=== PATIENT | male | born 1940 | race Caucasian/White ===

== ENCOUNTER 2023-02-15 16:48 | Emergency (ER) | payer MEDICARE, OTHER, SELFPAY ==
[2023-02-15] VITALS (31 sets, daily range): BP systolic 134–207; BP diastolic 63–95; PULSE 68–118; RESP 16–25; TEMP 37.1; O2SAT 92–99; BMI 32.8
--- NOTE | 2023-02-15 17:12 | DI.RAD.S_ITS ---
PROCEDURE: XR CHEST 1V INDICATIONS: chest pain TECHNIQUE: One view of the chest was acquired. COMPARISON: [facility], , CHEST 2 VIEW, 07/30/2013, 9:37. FINDINGS: Surgical changes and devices: None. Lungs and pleura: Lungs are clear. No pleural effusions or pneumothorax. Mediastinum: Mediastinal contours appear normal. Heart size is normal. Bones and chest wall: No suspicious bony lesions. Overlying soft tissues appear unremarkable. IMPRESSION: Stable radiographic evaluation of the chest without acute cardiopulmonary abnormalities or focal airspace disease. Dictated by: Surjit Chopra M.D. on 02/15/2023 at 17:28 Approved by: Surjit Chopra M.D. on 02/15/2023 at 17:31
[2023-02-15 17:15] LABS: Add Manual Diff / Slide Review NO; Basophils Absolute Auto 0 /uL (0-100); Basophils Percent Auto 0.5 % (0-2); Eosinophils Absolute Auto 0 /uL (0-450); Eosinophils Percent Auto 0.4 % (2-4); Hematocrit 43.6 % (41-53); Hemoglobin 14.9 g/dL (13.5-17.5); Lymphocytes Absolute Auto 1100 /uL (1100-4500); Lymphocytes Percent Auto 12.5 % (25-40); Mean Corpuscular HGB Conc 34.2 % (30-36); Mean Corpuscular Hemoglobin 31.6 PG (26-34); Mean Corpuscular Volume 92.4 fL (80-100); Monocytes Absolute Auto 700 /uL (0-900); Neutrophils Absolute Auto 6800 /uL (1500-7000); Neutrophils Percent Auto 78.6 % (50-75); Platelet Count 202 X10^3/uL (150-400); Red Blood Cell Count 4.72 X10^6/uL (4.5-5.9); Red Cell Distribution Width 13.4 % (11.6-14.8); White Blood Cell Count 8.7 X10^3/uL (4.5-11.0)
[2023-02-15 17:21] LABS: INR 1.2 (0.9-1.3); Prothrombin Time 13.2 SECONDS (10.1-12.7)
[2023-02-15] MEDS: PANTOPRAZOLE 40 MG VIAL 80 MG IV (17:23)
[2023-02-15 17:24] LABS: PTT Partial Thromboplastin Tim 32 SECONDS (26-36)
[2023-02-15 17:26] LABS: Creatine Kinase 92 U/L (55-170); Lipase 69 U/L (23-300)
[2023-02-15 17:28] LABS: Alanine Aminotransferase 28 IU/L (<50); Albumin 4.4 g/dL (3.5-5.0); Albumin Globulin Ratio 1.5 (1.0-2.8); Alkaline Phosphatase 57 U/L (38-126); Aspartate Aminotransferase 33 IU/L (17-59); BUN Creatinine Ratio 13.2 (6-22); Bilirubin Total 0.7 mg/dL (0.2-1.3); Blood Urea Nitrogen 15 mg/dL (9-20); Calcium 9.7 mg/dL (8.4-10.2); Carbon Dioxide 26 mmol/L (22-32); Chloride 100 mmol/L (98-107); Estimated Glomerular Filt Rate > 60 mL/min (>60); Glucose 115 mg/dL (80-110); HEMOLYSIS < 15 (0-50); Potassium 3.9 mmol/L (3.4-5.1); Sodium 135 mmol/L (137-145); Total Protein 7.4 g/dL (6.3-8.2)
--- NOTE | 2023-02-15 17:31 | PC.NURSE ---
Pt reports 1 episode last week of coffee ground emesis, has had nausea all week since. today started with mild CP and SOB which has resolved. h/o afib and lives in afib and takes eliquis daily. Reports he works out multiple times a week and takes walks without pain or issue.
[2023-02-15 17:38] LABS: NT-proBNP (BNP-Adult 18+) 294 pg/mL (<450); Troponin I < 0.012 ng/mL (0.01-0.034)
--- NOTE | 2023-02-15 18:12 | ED_ITS ---
HPI - Chest Pain General Chief Complaint: Chest Pain Stated Complaint: chest pain, sob Time Seen by Provider: 02/15/23 17:01 Source: patient Mode of arrival: Ambulatory Limitations: no limitations History of Present Illness HPI narrative: 82-year-old male nonsmoker with history of hypertension, atrial fibrillation on Eliquis presents for evaluation of high heart rate and elevated blood pressure this afternoon with associated central chest pressure that lasted about 10 minutes and went away at about 3:00 p.m.. He has been asymptomatic ever since. He is not dizzy nor weak or lightheaded. He is currently having no chest pain or shortness of breath. He denies nausea, vomiting or diarrhea though did have an episode about a week ago of vomiting but no subsequent changes. He denies any numbness, tingling or weakness. He has no headache, blurred vision or trouble with speech. He states that about a week or 2 ago his primary care provider took him off of metoprolol. He denies any dark and tarry stools. He denies other medication or dietary change Related Data Home Medications Medication Instructions Recorded Confirmed amlodipine 5 mg-benazepril 10 mg 1 cap PO DAILY 02/15/23 02/15/23 capsule apixaban 5 mg tablet (Eliquis) 5 mg PO BID 02/15/23 02/15/23 aspirin 81 mg capsule 81 mg PO DAILY 02/15/23 02/15/23 hydrochlorothiazide 12.5 mg capsule 12.5 mg PO DAILY 02/15/23 02/15/23 metoprolol tartrate 25 mg tablet 25 mg PO DAILY 02/15/23 02/15/23 potassium chloride 10 mEq 10 meq PO DAILY 02/15/23 02/15/23 tablet,extended release rosuvastatin 40 mg tablet 40 mg PO DAILY 02/15/23 02/15/23 tamsulosin 0.4 mg capsule 0.4 mg PO DAILY 02/15/23 02/15/23 Allergies Allergy/AdvReac Type Severity Reaction Status Date / Time No Known Drug Allergies Allergy Verified 02/15/23 17:00 Review of Systems Review of Systems Narrative: GENERAL: Denies chills, fatigue, malaise, fever, sweats. HEENT: Denies sinus pain, ear pain, sore throat, difficulty swallowing, dizziness. RESPIRATORY: Denies dyspnea, cough, wheezing, hemoptysis, sputum. CARDIOVASCULAR: See HPI GASTROINTESTINAL: Denies nausea, vomiting, abdominal pain, diarrhea, constipation, melena. : Denies dysuria, frequency, incontinence, hematuria, urinary retention. MUSCULOSKELETAL: denies weakness, joint pain, or bony pain SKIN: Denies rash, skin lesions, or other NEUROLOGIC: Denies weakness, headache, numbness, change in speech, confusion, seizures, incoordination. PSYCHIATRIC: No concerning psychosocial issues. 12 point review of systems is negative except for those stated above Patient History Medical History High cholesterol Hypertension Social History Smoking Status: Never smoker Smoking Status: Never smoker alcohol intake frequency: 0-2 drinks per day Substance Use Type: does not use Exam Narrative Exam Narrative: GENERAL: [82] year old patient appears stated age. Well-developed patient, in mi ld distress. HEAD: Atraumatic. Normocephalic. EYES: Pupils equal round and reactive. Extraocular motions intact. No scleral icterus. No injection or drainage. ENT: Nose without bleeding, purulent drainage. Throat without erythema, tonsillar hypertrophy or exudate. Airway patent. NECK: Trachea midline. Non tender CARDIOVASCULAR: Regular rate and rhythm without murmurs, gallops, or rubs. RESPIRATORY: Clear to auscultation. Breath sounds equal bilaterally. No wheezes, rales, or rhonchi. GASTROINTESTINAL: Abdomen soft, non-tender, nondistended. EXTREMITIES: No edema or joint tenderness. BACK: Nontender without deformity or crepitance. No flank tenderness. NEURO: AOx3. SKIN: No rash or erythema of visible areas Initial Vital Signs Initial Vital Signs: Vital Signs Temperature 98.7 F 02/15/23 16:50 Pulse Rate 118 H 02/15/23 16:50 Respiratory Rate 24 02/15/23 16:50 Blood Pressure 207/95 H 02/15/23 16:50 Pulse Oximetry 99 02/15/23 16:50 Oxygen Delivery Method Room Air 02/15/23 16:50 Course Orders Ordered: ED Orders 02/15/23 17:00 Complete Blood Count AUTO DIFF Stat Comprehensive Metabolic Panel Stat Lactate (Lactic Acid) Stat Lipase Stat NT-proBNP (BNP-Adult 18+) Stat PTT Partial Thromboplastin Angelo Stat Prothrombin Time INR Stat Troponin & CK Cardiac Panel Stat Type and Screen Stat 02/15/23 17:12 XR chest 1V Stat 02/15/23 17:15 EKG-12 Lead Stat 02/15/23 20:00 Troponin & CK Cardiac Panel Stat Ondansetron HCl (Ondansetron 4 Mg/2 Ml Inj) 4 mg IV NOW PRN PRN Reason: Nausea And Vomiting Ondansetron HCl (Ondansetron 4 Mg Odt) 4 mg SL NOW PRN PRN Reason: Nausea And Vomiting Discontinued Medications Pantoprazole Sodium (Pantoprazole 40 Mg Vial) 80 mg IV NOW ONE Stop: 02/15/23 17:01 Last Admin: 02/15/23 17:23 Dose: 80 mg Documented By: CTS Vital Signs Vital signs: Vital Signs - 8 hr 02/15/23 16:50 02/15/23 16:53 02/15/23 17:00 Temperature 98.7 F Pulse Rate 118 H 96 H 95 H Respiratory Rate 24 25 H Blood Pressure 207/95 H Pulse Oximetry 99 96 97 Oxygen Delivery Method Room Air 02/15/23 17:02 02/15/23 17:02 02/15/23 17:10 Temperature Pulse Rate 93 H Respiratory Rate 24 Blood Pressure 174/81 H 165/80 H Pulse Oximetry 95 Oxygen Delivery Method 02/15/23 17:10 02/15/23 17:15 02/15/23 17:20 Temperature Pulse Rate 94 H 85 87 Respiratory Rate 21 20 23 Blood Pressure Pulse Oximetry 97 97 97 Oxygen Delivery Method Room Air 02/15/23 17:20 02/15/23 17:30 02/15/23 17:30 Temperature Pulse Rate 81 Respiratory Rate 22 Blood Pressure 170/79 H 164/77 H Pulse Oximetry 96 Oxygen Delivery Method Room Air 02/15/23 17:40 02/15/23 17:40 02/15/23 17:45 Temperature Pulse Rate 82 81 Respiratory Rate 22 22 Blood Pressure 169/77 H Pulse Oximetry 97 96 Oxygen Delivery Method 02/15/23 17:50 02/15/23 17:50 02/15/23 18:00 Temperature Pulse Rate 78 Respiratory Rate 20 Blood Pressure 134/70 146/73 H Pulse Oximetry 95 Oxygen Delivery Method 02/15/23 18:00 02/15/23 18:12 02/15/23 18:12 Temperature Pulse Rate 76 78 Respiratory Rate 22 23 Blood Pressure 168/78 H Pulse Oximetry 97 96 Oxygen Delivery Method 02/15/23 18:15 02/15/23 18:20 02/15/23 18:20 Temperature Pulse Rate 77 72 Respiratory Rate 19 22 Blood Pressure 153/63 H Pulse Oximetry 97 96 Oxygen Delivery Method 02/15/23 18:30 02/15/23 18:30 02/15/23 18:40 Temperature Pulse Rate 83 Respiratory Rate 18 Blood Pressure 159/77 H 178/81 H Pulse Oximetry 97 Oxygen Delivery Method 02/15/23 18:40 02/15/23 18:45 02/15/23 18:50 Temperature Pulse Rate 80 75 Respiratory Rate 20 19 Blood Pressure 170/84 H Pulse Oximetry 98 97 Oxygen Delivery Method 02/15/23 18:50 02/15/23 19:00 02/15/23 19:00 Temperature Pulse Rate 81 78 Respiratory Rate 25 H 18 Blood Pressure 167/81 H Pulse Oximetry 97 Oxygen Delivery Method 02/15/23 19:10 02/15/23 19:10 02/15/23 19:15 Temperature Pulse Rate 70 68 Respiratory Rate 18 18 Blood Pressure 165/78 H Pulse Oximetry 95 95 Oxygen Delivery Method 02/15/23 19:20 02/15/23 19:20 02/15/23 19:30 Temperature Pulse Rate 69 Respiratory Rate 19 Blood Pressure 157/75 H 176/84 H Pulse Oximetry 97 Oxygen Delivery Method 02/15/23 19:30 02/15/23 19:44 02/15/23 19:44 Temperature Pulse Rate 79 70 Respiratory Rate 19 17 Blood Pressure 170/80 H Pulse Oximetry 97 Oxygen Delivery Method 02/15/23 19:45 02/15/23 20:00 02/15/23 20:15 Temperature Pulse Rate 70 76 73 Respiratory Rate 16 21 18 Blood Pressure Pulse Oximetry Oxygen Delivery Method 02/15/23 20:30 02/15/23 20:38 02/15/23 20:39 Temperature Pulse Rate 69 77 Respiratory Rate 18 17 Blood Pressure 187/87 H Pulse Oximetry 92 Oxygen Delivery Method MDM - Chest Pain Lab Data 02/15/23 17:00 02/15/23 17:00 Labs: Lab Results 02/15/23 02/15/23 02/15/23 Range/Units 17:00 17:00 17:00 WBC 8.7 (4.5-11.0) X10^3/uL RBC 4.72 (4.5-5.9) X10^6/uL Hgb 14.9 (13.5-17.5) g/dL Hct 43.6 (41-53) % MCV 92.4 (80-100) fL MCH 31.6 (26-34) PG MCHC 34.2 (30-36) % RDW 13.4 (11.6-14.8) % Plt Count 202 (150-400) X10^3/uL Neut % (Auto) 78.6 H (50-75) % Lymph % (Auto) 12.5 L (25-40) % Pender % (Auto) 8.0 (3-14) % Eos % (Auto) 0.4 L (2-4) % Baso % (Auto) 0.5 (0-2) % Neut # (Auto) 6800 (7294-5944) /uL Lymph # (Auto) 1100 (4237-9237) /uL Pender # (Auto) 700 (0-900) /uL Eos # (Auto) 0 (0-450) /uL Baso # (Auto) 0 (0-100) /uL PT 13.2 H (10.1-12.7) SECONDS INR 1.2 (0.9-1.3) APTT 32 (26-36) SECONDS Sodium 135 L (137-145) mmol/L Potassium 3.9 (3.4-5.1) mmol/L Chloride 100 (98-107) mmol/L Carbon Dioxide 26 (22-32) mmol/L BUN 15 (9-20) mg/dL Creatinine 1.14 (0.66-1.25) mg/dL Estimated GFR > 60 (>60) mL/min BUN/Creatinine Ratio 13.2 (6-22) Glucose 115 H (80-110) mg/dL Lactate (0.7-2.1) mmol/L Calcium 9.7 (8.4-10.2) mg/dL Total Bilirubin 0.7 (0.2-1.3) mg/dL AST 33 (17-59) IU/L ALT 28 (<50) IU/L Alkaline Phosphatase 57 (38-126) U/L Total Creatine Kinase (55-170) U/L CK-MB (CK-2) CK-MB (CK-2) Rel Index Troponin I (0.01-0.034) ng/mL NT-Pro-B Natriuret Pep (<450) pg/mL Total Protein 7.4 (6.3-8.2) g/dL Albumin 4.4 (3.5-5.0) g/dL Globulin 3.0 (1.7-4.1) g/dL Albumin/Globulin Ratio 1.5 (1.0-2.8) Lipase (23-300) U/L 02/15/23 02/15/23 02/15/23 Range/Units 17:00 17:00 20:00 WBC (4.5-11.0) X10^3/uL RBC (4.5-5.9) X10^6/uL Hgb (13.5-17.5) g/dL Hct (41-53) % MCV (80-100) fL MCH (26-34) PG MCHC (30-36) % RDW (11.6-14.8) % Plt Count (150-400) X10^3/uL Neut % (Auto) (50-75) % Lymph % (Auto) (25-40) % Pender % (Auto) (3-14) % Eos % (Auto) (2-4) % Baso % (Auto) (0-2) % Neut # (Auto) (4977-6395) /uL Lymph # (Auto) (7325-0885) /uL Pender # (Auto) (0-900) /uL Eos # (Auto) (0-450) /uL Baso # (Auto) (0-100) /uL PT (10.1-12.7) SECONDS INR (0.9-1.3) APTT (26-36) SECONDS Sodium (137-145) mmol/L Potassium (3.4-5.1) mmol/L Chloride (98-107) mmol/L Carbon Dioxide (22-32) mmol/L BUN (9-20) mg/dL Creatinine (0.66-1.25) mg/dL Estimated GFR (>60) mL/min BUN/Creatinine Ratio (6-22) Glucose (80-110) mg/dL Lactate 1.0 (0.7-2.1) mmol/L Calcium (8.4-10.2) mg/dL Total Bilirubin (0.2-1.3) mg/dL AST (17-59) IU/L ALT (<50) IU/L Alkaline Phosphatase (38-126) U/L Total Creatine Kinase 92 83 (55-170) U/L CK-MB (CK-2) TNP TNP CK-MB (CK-2) Rel Index TNP TNP Troponin I < 0.012 < 0.012 (0.01-0.034) ng/mL NT-Pro-B Natriuret Pep 294 (<450) pg/mL Total Protein (6.3-8.2) g/dL Albumin (3.5-5.0) g/dL Globulin (1.7-4.1) g/dL Albumin/Globulin Ratio (1.0-2.8) Lipase 69 (23-300) U/L ECG Data Interpretation: [1715] EKG is normal sinus rhythm rate [89 ] and free of any signs of ischemia or ectopy. No ST segmental elevation or depression. No T wave inversions MDM Narrative Medical decision making narrative: CC: 82M with HTN, tachycardia and chest pain, resolved prior to arrival Complicating co-morbidities: Age, AFib, hypertension Data collected from: Patient Medical records reviewed: Prior notes reviewed in our EMR Differential considered, but not limited to: Hypertensive urgency, rapid AFib, cardiac ischemia versus other Exam documented above, pertinent findings include: Patient alert and oriented x3, heart rate regular, regular rhythm, lungs clear with nonlabored breathing, abdomen soft and nontender Lab Test results independently reviewed as above. Pertinent findings: No leukocytosis, left shift, signs, normal electrolytes, renal function, LFTs Independently reviewed EKG as above Imaging studies independently reviewed: Chest x-ray without acute findings Treatments: Zofran/protonix Re- evaluations: Patient asymptomatic for duration of visit Discussion: Patient recently stopped metoprolol and had an episode of chest pressure earlier today with associated hypertension and rapid heart rate, his symptoms lasted 10 minutes and resolved long before his arrival. EKG is nonischemic, patient is asymptomatic for duration of visit. Troponin x2 is negative. This seems most likely a consequence of either rapid AFib or hypertension, that had resolved prior to his arrival. He seems to have been having symptoms since stopping his metoprolol. For this reason we have encouraged him to go back on metoprolol at least until he follows up with his primary care provider in the next few days. Otherwise other return precautions discussed Disposition: see below, along with detailed discharge instructions that have bee n reviewed with patient as well as indications for ED re-evaluation and additional outpatient follow up Discharge Plan Departure Patient Disposition: Home Clinical Impression: Hypertension, Tachycardia Instructions: High Blood Pressure Activity Restrictions/Additional Instructions: *You have been diagnosed with [high blood pressure and high heart rate, both resolved. As we discussed your history and physical exam as well as labs, EKG and imaging are very reassuring.] *What to do: * as we discussed, please start taking your metoprolol again, least until you follow-up with your primary care provider. Otherwise please continue to take your regular medications as directed. [ ] New medication prescriptions sent to your pharmacy: [ ] [ ] New medication written as a paper prescription [ ] No new medications given *Please follow up with your primary care provider in 2-3 days, call for an appointment. Let them know you were seen in the Emergency Department and that we ask that you be seen in follow up. We will electronically transmit a record of today's note if your PCP is in our system *If you do not have a primary care provider please contact the [facility] Resource line at [phone]. They will ask some questions about your medical history and help get you set up with a doctor in the community. *Return to Emergency Department if you should have any new, worsening or concerning symptoms, such as [fever greater than 101 F, shaking chills, worsening pain, persistent vomiting or other bothersome symptoms] Prescriptions: No Action potassium chloride 10 mEq tablet extended release 10 meq PO DAILY tamsulosin 0.4 mg capsule 0.4 mg PO DAILY amlodipine-benazepril 5-10 mg capsule 1 cap PO DAILY hydrochlorothiazide 12.5 mg Capsule 12.5 mg PO DAILY rosuvastatin 40 mg tablet 40 mg PO DAILY metoprolol tartrate 25 mg tablet 25 mg PO DAILY Eliquis 5 mg tablet 5 mg PO BID aspirin 81 mg Capsule 81 mg PO DAILY Referrals: Haresh Castillo MD [Primary Care Provider] - Stand Alone Forms: Patient Portal/API
[2023-02-15 20:17] LABS: Creatine Kinase 83 U/L (55-170)
[2023-02-15 20:30] LABS: Troponin I < 0.012 ng/mL (0.01-0.034)
== END 2023-02-15 20:53 | disposition home or self-care (01) ==
PROVIDERS: Emergency Medicine; Emergency Provider Emergency Medicine; Family Provider Family Medicine; PCP Family Medicine
DX: I10 Essential (primary) hypertension (principal); R00.0 Tachycardia, unspecified; R07.9 Chest pain, unspecified; Z79.01 Long term (current) use of anticoagulants; Z79.899 Other long term (current) drug therapy
CPT/HCPCS: 36415; 71045; 80053; 82550; 83605; 83690; 83880; 84484; 85025; 85610; 85730; 86850; 86900; 86901; 93005; 96374; 99284; C9113

== ENCOUNTER → 2023-10-29 14:28 | Outpatient (CLI) | payer MEDICARE, OTHER, SELFPAY ==
--- NOTE | 2023-10-29 | DI.US.S_ITS ---
PROCEDURE: US ABD AORTA ANEURYSM SCREEN INDICATIONS: HYPERTENSION TECHNIQUE: Real time scanning was performed of the aorta and iliac arteries, with image documentation. COMPARISON: [facility], , ABD AORTA ANEURYSM SCREENING, 12/21/2012, 14:39. FINDINGS: Aorta: Proximal aortic diameter measures 1.8 cm. Mid-aorta measures 1.5 cm. Distal aortic diameter is 1.4 cm. Iliac arteries: Right common iliac artery measures 1 are cm. Left common iliac artery measures 1 cm. IMPRESSION: No aneurysm seen. Dictated by: Yannick Burnett M.D. on 10/29/2023 at 15:47 Approved by: Yannick Burnett M.D. on 10/29/2023 at 15:48
--- NOTE | 2023-10-29 | DI.RAD.S_ITS ---
PROCEDURE: XR HIP W PEL IF DONE LT 2V INDICATIONS: left hip pain TECHNIQUE: AP pelvis with lateral view(s) of the left hip(s). COMPARISON: None. FINDINGS: Bones: No fractures or dislocations. Moderate left hip degenerative changes. Right hip arthroplasty in place without evidence of complication. Degenerative changes of the visualized lower lumbar spine and pubic symphysis. Pelvic ring appears intact. No suspicious bony lesions. Soft tissues: The visualized bowel gas pattern is normal. No suspicious soft tissue calcifications. Surgical clips projecting over the pelvis. Atherosclerotic vascular calcifications. IMPRESSION: Moderate degenerative changes of the left hip. Right hip arthroplasty without evidence of complication. Dictated by: Kieran Galvan M.D. on 10/29/2023 at 16:51 Approved by: Kieran Galvan M.D. on 10/29/2023 at 16:51
== END ==
PROVIDERS: Family Provider Family Medicine; PCP Family Medicine; Referring Provider Family Medicine; Visit Provider Family Medicine
DX: M25.552 Pain in left hip (principal); Z13.6 Encounter for screening for cardiovascular disorders; I10 Essential (primary) hypertension; Z96.641 Presence of right artificial hip joint
CPT/HCPCS: 73502; 76706

== ENCOUNTER → 2023-12-12 14:02 | Outpatient (CLI) | payer MEDICARE, OTHER, SELFPAY ==
--- NOTE | 2023-12-12 14:03 | DI.US.S_ITS ---
PROCEDURE: US CAROTID DOPPLER BI INDICATIONS: Occlusion and stenosis carotid arteries TECHNIQUE: Color and pulse Doppler interrogation was performed of both carotid systems, with image documentation and velocity measurements. COMPARISON: [facility], [place], US CAROTID BILATERAL, 08/04/2020, 10:45. FINDINGS: Stenosis calculations are based on SRU (Society of Radiologists in Ultrasound) criteria. The flow velocities and the arterial waveforms are normal within both carotid arterial systems. Atherosclerotic plaque is seen on both sides, including areas of shadowing calcified plaque. The estimated degree of internal carotid artery stenosis is less than 50%. Antegrade flow is confirmed within both vertebral arteries. IMPRESSION: No hemodynamically significant stenosis is seen. Atherosclerotic plaque is noted bilaterally, with areas of calcified plaque with shadowing. Study similar to the outside prior ultrasound. Dictated by: Yannick Burnett M.D. on 12/12/2023 at 14:09 Approved by: Yannick Burnett M.D. on 12/12/2023 at 14:13
== END ==
LOC: US 14:02
PROVIDERS: Family Provider Family Medicine; PCP Family Medicine; Referring Provider Internal Medicine Cardiovascular Disease; Visit Provider Internal Medicine Cardiovascular Disease
DX: I65.23 Occlusion and stenosis of bilateral carotid arteries (principal)
CPT/HCPCS: 93880

== ENCOUNTER → 2024-11-26 09:35 | Outpatient (CLI) | payer MEDICARE, OTHER, SELFPAY ==
--- NOTE | 2024-11-26 18:04 | DI.NM.S_ITS ---
DATE OF SERVICE: 11/26/2024 NUCLEAR CARDIOLOGY MYOCARDIAL PERFUSION STUDY PROCEDURE PERFORMED: Exercise treadmill stress and rest myocardial perfusion imaging with gating to assess ejection fraction and regional wall motion. ORDERING PROVIDER: José Morley MD. INDICATIONS: The patient is an 84-year-old male with a history of CABG and recent atrial fibrillation with exertional dyspnea and lightheadedness. CARDIAC STRESS: The patient was able to exercise for 6 minutes 36 seconds on a standard Fidel protocol suggesting excellent exercise capacity with an NANCY of -39%. He had a modestly accentuated heart rate response to exercise with a resting heart rate of 85 bpm increasing to 108 bpm after 1 minute of exercise and achieving a maximum heart rate of 161 bpm (118% of his predicted maximum). He had a borderline hypertensive blood pressure response with a resting blood pressure of 140/80 increasing to a maximum of 200/88. He had no chest discomfort or other anginal symptoms beyond moderate exertional dyspnea. His resting ECG shows atrial fibrillation with a controlled ventricular rate and occasional PVCs, and with mild, nonspecific ST-segment abnormalities in the inferolateral leads. With stress, the ST-segment abnormalities become modestly accentuated but remain nonspecific. There continue to be occasional PVCs, rarely in couplets, but no other complex ventricular ectopy. The ST segments essentially return to their baseline morphology within 1 minute of recovery, suggesting they are likely a rate-related phenomenon. At 5 minutes of exercise at a heart rate of 140 bpm, 26.3 millicuries of technetium-99m Myoview was injected and he was imaged 15 minutes later using a gated SPECT acquisition protocol. Earlier in the day while at rest, he had been injected with 12.5 millicuries of technetium-99m Myoview and was imaged 15 minutes later, again using a gated SPECT acquisition protocol. FINDINGS: 1. Raw data. There is fair myocardial tracer uptake. The lung/heart ratio is at the upper limits of normal at 0.40. The TID ratio is normal at 0.83. 2. Quantitated gated SPECT: Post-stress ejection fraction is estimated at 70%. There are no focal wall motion abnormality and specifically, the inferior and lateral saini appear to have normal contractility. The resting ejection fraction is 71% with a similar contraction pattern and borderline elevated end-diastolic volume of 119 mL. 3. Myocardial perfusion imaging: Post-stress supine images show a mild perfusion defect in the proximal and mid inferior wall in a pattern consistent with diaphragmatic attenuation, supported by its near- complete resolution on the prone images although a slight defect remains present at the base of the lateral wall. The resting images show an identical perfusion pattern without any improvement in the inferolateral perfusion defect. IMPRESSION: 1. Probable normal myocardial perfusion studies for ischemia. 2. Fixed proximal to mid inferior perfusion defect that resolves on prone imaging, most consistent with diaphragmatic attenuation artifact. There is slight persistence of a defect at the base of the lateral wall, which could reflect a previous nontransmural infarction but this is nonspecific. There is no evidence for any myocardial ischemia. 3. Normal left ventricular systolic function with borderline left ventricular enlargement. There are no focal wall motion abnormalities. 4. Excellent exercise capacity without angina. While there is some accentuation of baseline ST-segment abnormalities, these are nonspecific likely rate related. He was in atrial fibrillation with a mildly accentuated heart rate response to exercise, achieving a maximum heart rate of 161 bpm from a resting heart rate of 85 bpm. He had a borderline hypertensive blood pressure response. Dick Villarreal - /kyle/DANILO doc#: [id number]/job#: [id number] dd: 11/26/2024 17:37:00 dt: 11/26/2024 17:46:00 DICTATING MD/COPIES TO: Haresh Raymond MD; José Morley MD; Maria Del Rosario Nelson MD COPIES MNE: BON; ;
== END ==
PROVIDERS: Family Provider Family Medicine; PCP Family Medicine; Referring Provider Internal Medicine Cardiovascular Disease; Visit Provider Internal Medicine Cardiovascular Disease
DX: I25.810 Atherosclerosis of coronary artery bypass graft(s) without angina pectoris (principal); I48.21 Permanent atrial fibrillation; Z79.01 Long term (current) use of anticoagulants
CPT/HCPCS: 78452; 93017; A9502